=== PATIENT | female | born 1940 | race Caucasian/White ===

== ENCOUNTER 2021-01-29 08:50 | Day surgery (SDC) | payer MEDICARE, OTHER, SELFPAY ==
[2021-01-29 09:14] VITALS: BP 182/86; PULSE 72; RESP 16; TEMP 36.5; O2SAT 98
[2021-01-29] MEDS: Tropicam./Phenyleph. (1/2.5%) 5 ML BTL OS ×3 (09:20→09:32)
--- NOTE | 2021-01-29 09:31 | W.ANESPRE ---
General Info Date of Service Date Performed: 01/29/21 Height: 5 ft 2 in Weight: 58.967 kg Body Mass Index (BMI): 23.8 Surgical Procedure: Operation Date: 01/29/21 11:40 Proposed Procedures Side Surgeon p Cataract Extraction with IOL Implant Left Armani Vides MD Meds Allergies and Home Medications Allergies Allergy/AdvReac Type Severity Reaction Status Date / Time latex Allergy Intermediate Other (See Unverified 01/28/21 14:39 Comment) Macrolide Antibiotics Allergy Intermediate Other (See Unverified 01/28/21 14:39 Comment) lisinopril AdvReac Intermediate Other (See Unverified 01/28/21 14:39 Comment) Home Medication Medication Instructions Recorded albuterol sulfate [Ventolin HFA] 2 puff INHALATION Q4H PRN 01/27/21 amlodipine 5 mg PO DAILY 01/27/21 ascorbic acid (vitamin C) [Vitamin 500 mg PO DAILY 01/27/21 C] aspirin [Aspir-81] 81 mg PO DAILY 01/27/21 cholecalciferol (vitamin D3) 25 mcg PO DAILY 01/27/21 [Vitamin D3] ferrous sulfate [iron] 325 mg PO DAILY 01/27/21 fluticasone propionate [Flonase] 1 spray INTRANASAL DAILY PRN 01/27/21 lidocaine 1 applic TOPICAL DAILY PRN 01/27/21 [id number]-zjiztni-min 1 tab PO BID 01/27/21 [ICaps] vitamin A 1 cap PO DAILY 01/27/21 vitamin B complex 1 cap PO DAILY 01/27/21 vitamin E 400 cap PO DAILY 01/27/21 Current Visit Medications: Current Medications Generic Name Dose Route Start Last Admin Trade Name Freq PRN Reason Stop Dose Admin Acetaminophen 1,000 mg 01/29/21 06:00 Acetaminophen 500 Mg Tab PO Q4H PRN PRN Miscellaneous Medication 0 ml 01/29/21 06:00 Prednisolone 1%, Moxifloxacin 0.5%, Nepafenac 0.1% 5ml Btl OS DIRECTED [facility] Miscellaneous Medication 0 ml 01/29/21 06:00 01/29/21 09:26 Tropicam./Phenyleph. (1/2.5%) 5 Ml Btl OS 1 drp DIRECTED MANE Administration Tetracaine HCl 0 ml 01/29/21 06:00 Tetracaine 0.5% 4 Ml Btl OS DIRECTED [facility] Active Problems Active Problems: Problem Status Onset Code Nuclear sclerotic cataract of left eye H25.12 Cortical cataract of left eye H26.9 Medical History Medical History Alopecia Hyperlipidemia Hypertension Osteopenia Otitis externa RAD (reactive airway disease) Surgical History Surgical History History of hysteroscopy Hx of dilation and curettage Hx of tonsillectomy Tobacco Smoking/Tobacco Use Status: Never Alcohol Alcohol Intake: current Alcohol intake frequency: a few times a month Alcohol type: wine Substance Use Substance use: Never Substance use type: does not use Vital Signs and Lab Results Vital Signs Most Recent Vital Signs in EMR: Most Recent Vital Signs Temp Pulse Resp BP Pulse Ox 36.5 C 72 16 182/86 H 98 01/29/21 09:14 01/29/21 09:14 01/29/21 09:14 01/29/21 09:14 01/29/21 09:14 Lab Results Blood Type / Crossmatch: No Data to Display Complete Blood Count: No Data to Display Complete Metabolic Panel: No Data to Display Liver Function Panel: No Data to Display Coagulation Panel: No Data to Display Cardiac Panel: No Data to Display Arterial Blood Gas: No Data to Display Venous Blood Gas: No Data to Display Pancreas Panel: No Data to Display Thyroid Panel: No Data to Display Infectious Disease: No Data to Display Blood Cultures: No Data to Display Toxicology Panel: No Data to Display Anesthesia Assessment and Plan Anesthesia History Personal History: No History of Anesthesia Complications Family History: No Family History of Anesthesia Complications Exercise Tolerance Exercise Tolerance: Metabolic Equivalents>4 Pertinent Negatives Pertinent Negatives: No Symptoms of GERD Cardiac & Pulmonary Exam Cardiac Exam: Normal S1/S2 Heart Sounds Pulmonary Exam: Clear Bilateral Breath Sounds Airway Exam Known Difficult Airway: No Mallampati Class: 3 Mouth Opening: Normal (> 3cm) Thyromental Distance: Less than 3 cm Neck Range of Motion: Full ROM Neck Circumference: Normal Teeth Condition: Normal Dentition ASA Classification ASA Score: ASA 2 Emergency Case?: No NPO Status NPO Status: NPO Clears >2 hours, Solids >8 hours Anesthesia Plan Resuscitation Status: Full Code Anesthesia Technique: MAC Anesthesia Airway Planned: Natural Airway Monitors Used: Standard Monitors
[2021-01-29 09:33] VITALS: BMI 23.8
[2021-01-29] MEDS: Tetracaine 0.5% 4 ML BTL OS (10:35)
[2021-01-29] MEDS: Lidocaine 2% Jelly 6 ML SYR (10:39)
[2021-01-29] MEDS: Duovisc Viscoelastic System EACH 1 EACH (10:39)
[2021-01-29] MEDS: Lidocaine 1% Pres-Free 5 ML VIAL (10:39)
[2021-01-29] MEDS: Balanced Salt Soln.-PLUS 500 ML BAG (10:39)
[2021-01-29] MEDS: Povidone-Iodine Ophth 30 ML BTL (10:43)
[2021-01-29] MEDS: Trypan Blue 0.06% 0.5 ML SYR (10:48)
--- NOTE | 2021-01-29 11:02 | W.PM.DSUDISC ---
Discharge Plan Disposition Patient Disposition: HOME Condition: Good Discharge Details Attending Provider: Armani Vides Primary Care Provider: Pam Chacon Home Meds and New Rx's Prescriptions: No Action vitamin A 25,000 unit Capsule 1 cap PO DAILY RF: 0 lidocaine 4 % Cream 1 applic topical DAILY PRNRF: 0 amlodipine 5 mg Tablet 5 mg PO DAILY RF: 0 aspirin [Aspir-81] 81 mg Tablet,Delayed Release (Dr/Ec) 81 mg PO DAILY RF: 0 ascorbic acid (vitamin C) [Vitamin C] 500 mg Tablet 500 mg PO DAILY RF: 0 ferrous sulfate [iron] 325 mg (65 mg iron) Tablet 325 mg PO DAILY RF: 0 albuterol sulfate [Ventolin HFA] 90 mcg/actuation Hfa Aerosol Inhaler 2 puff INHALATION Q4H PRNRF: 0 fluticasone propionate [Flonase] 50 mcg/actuation [place],Suspension 1 spray INTRANASAL DAILY PRNRF: 0 vitamin E 400 unit Capsule 400 cap PO DAILY RF: 0 vitamin B complex Capsule 1 cap PO DAILY RF: 0 ICaps 3,019-1-979-75 ujmm-kh-ta-unit Tablet Extended Release 1 tab PO BID RF: 0 cholecalciferol (vitamin D3) [Vitamin D3] 25 mcg (1,000 unit) Tablet 25 mcg PO DAILY RF: 0 Discharge Instructions Stand Alone Forms: Post-op Topical Cataract, Erna Gold (DSU) Discharge Orders Discharge Orders: Discharge Order (Routine); Ordered 01/29/21 Ordered By: Armani Vides DS: Diagnosis Discharge Diagnosis (1) Nuclear sclerotic cataract of left eye: Status: Resolved (2) Cortical cataract of left eye: Status: Resolved
--- NOTE | 2021-01-29 11:03 | W.PM.OP ---
Date of service: 01/29/21 Time of Service: 11:03 Operative Note Operative Note DATE OF PROCEDURE: 01/29/21 PRE-OP DIAGNOSIS: Nuclear/cortical cataract, left eye Poor red reflex, left eye secondary to cataract POST-OP DIAGNOSIS: same PROCEDURE: Cataract extraction using phacoemulsification with intraocular lens implant, left eye, using capsular staining with Vision Blue SURGEON: Armani Vides ANESTHESIA TYPE: Local By Surgeon and MAC Refer to Anesthesia Record COMPLICATIONS: None Patient was transported to: same day Patient's condition: stable Implants: [employer] / [employer] Tecnis [id number] Indications: Progressive decreased vision due to cataract, left eye, with poor red reflex Procedure Description: CATARACT SURGERY OPERATIVE REPORT PREOPERATIVE DIAGNOSIS: 1. Nuclear/cortical cataract, left eye 2. Poor red reflex secondary to #1 POSTOPERATIVE DIAGNOSIS: Same OPERATION: 1. Cataract extraction using phacoemulsification with posterior chamber intraocular lens implant, left eye. 2. Capsular staining with Vision Blue IOL: IOL Manager Trade/Model: [employer] Costa / JOSE Tecnis [id number] IOL Power: + 22.5 diopters IOL Serial Number: [id number] Optic Diameter: 6.0 mm Haptic/Overall Diameter: 13.0 mm PHACO INFO: Bj [employer] Vision System with OZil and Active Fluidics Cumulative Dispersed Energy (CDE): 9.12 seconds SURGEON: Armani Vides MD, HETAL ANESTHESIA: Monitored A [facility] (MAC), with local sub-tenon's anesthetic infiltration COMPLICATIONS: None SPECIMENS: None INDICATIONS FOR PROCEDURE: The patient is an 80-year-old lady with history of diminished visual acuity in her left eye. She is noted to have a dense nuclear and cortical cataract of the left eye. The option of cataract surgery was offered to the patient and she wished to proceed. PROCEDURE: The correct surgical eye was identified and marked as the left eye and the pupil was dilated in the preoperative area using mydriatics and cycloplegics. The dilated pupil size was 6.5 mm. She elected to proceed without oral sedation. The patient was brought to the operating room where cardiopulmonary monitoring was instituted and surgical time-out was performed, confirming the correct operative eye and IOL power. Topical anesthesia was administered and ophthalmic povidone-iodine 5% was instilled into the conjunctival fornices. Lidocaine gel was applied to the cornea and the yanelis-ocular area was prepped with Betadine 10% solution and draped in the usual sterile fashion for intraocular surgery, including an aperture drape. A Tegaderm transparent film dressing was cut in half and used to cover the lashes and lid margins. Care was taken to sequester the lashes and lid margins under the Tegaderm dressing. A lid speculum was placed between the lids of the operative eye and the Karyn-Viet operating microscope was maneuvered into position. Angélica scissors were then used to make a conjunctival buttonhole approximately 6mm posterior to the limbus in the inferonasal quadrant. Blunt dissection was carried out to expose bare sclera, and a blunt-tipped sub-tenon?s anesthesia cannula was introduced and passed posteriorly along the globe where non-preserved plain lidocaine was injected into posterior sub-Tenon?s space. A sideport knife was used to make a paracentesis port superiorly/superiortemporally. Intraocular phenylephrine/lidocaine was injected int the anterior chamber.. Air was then injected into the anterior chamber, followed by Vision Blue, which was painted over the anterior capsule and then irrigated out using BSS. The anterior chamber was filled with viscoelastic. A 2.4mm keratome knife was used to create a half-thickness groove at the limbus and then to construct a three-plane near-clear corneal tunnel extending 2.0mm into clear cornea at the 3:00 position. A flap was raised on the anterior capsule and capsulorhexis forceps were used to complete a continuous curvilinear capsulorhexis of 5.0 mm. Balanced salt solution was then used to perform cortical cleaving hydrodissection and nuclear hydrodelineation until the lens could be freely rotated within the capsular bag. The lens nucleus was then disassembled and removed within the capsular bag and iris plane using phacoemulsification. Residual cortical material was removed using the 45-degree angled silicone I/A tip with 0.3mm port. The posterior capsule was carefully polished to remove as much residual lens epithelial cells as safely possible. The capsular bag was then inflated and the anterior chamber deepened with viscoelastic. The lens implant described above was inserted into the capsular bag using the JOSE [place] Injector. A Kuglen hook was used to dial the IOL into position. Residual viscoelastic was then removed first from posterior to the IOL, then from the anterior chamber using the I/A handpiece. The lens implant was noted to center nicely within the capsular bag. The incisions were stromally hydrated, and the anterior chamber was reformed using BSS. Then 0.5cc of moxifloxacin 1.0mg/ml were injected into the capsular bag and anterior chamber. The incisions were checked with a Weck spear and found to be secure. Several drops of ophthalmic povidone-iodine 5% were then applied to the eye followed by two drops of Imprimis combination prednisolone/moxifloxacin/nepafenac solution. The drapes were removed and a clear plastic protective eye shield was placed over the eye. The patient was then returned to Same Day Surgery in stable condition.
[2021-01-29 11:05] VITALS: BP 152/86; PULSE 62; RESP 18; TEMP 36.4; O2SAT 97
--- NOTE | 2021-01-29 11:38 | W.ANESPOSTOP ---
Postoperative Evaluation Date, Time and Location Date Performed: 01/29/21 Time Performed: 11:10 Patient Location: Day Surgery Unit Vital Signs Most Recent Imported Vital Signs: Most Recent Vital Signs Temp Pulse Resp BP Pulse Ox 36.4 C L 62 18 152/86 H 97 01/29/21 11:05 01/29/21 11:05 01/29/21 11:05 01/29/21 11:05 01/29/21 11:05 Pain Score Most Recent Pain Score: Most Recent Pain Score Pain Level 0 01/29/21 11:05 Assessment Mental Status: Awake (Alert & Oriented to Patient Baseline) Airway and Respiratory Function: Patent airway with normal (patient baseline) respiratory exam Cardiovascular Function: Hemodynamically Stable Hydration Status: Adequately Hydrated Nausea & Vomiting: No Nausea or Vomiting Pain: Pt. Denies Any Pain Peripheral Nerve Block: Patient did not receive a nerve block
== END 2021-01-29 11:55 | disposition home or self-care (01) ==
PROVIDERS: PCP Nurse Practitioner Family; Visit Provider Ophthalmology
PROC: (CPT 66984; principal; 2021-01-29 11:30)
DX: H25.12 Age-related nuclear cataract, left eye (principal)
CPT/HCPCS: 66984; V2632

== ENCOUNTER 2021-10-18 08:59 | Day surgery (SDC) | payer MEDICARE, OTHER, SELFPAY ==
--- NOTE | 2021-10-18 06:37 | ANES.PREOP_ITS ---
General Info Date of Service Date Performed: 10/18/21 Height: 5 ft 2 in Weight: 62 kg Body Mass Index (BMI): 25.0 Surgical Procedure: Operation Date: 10/18/21 10:40 Proposed Procedure Side Surgeon p Cataract Extraction with IOL Implant Right Armani Vides MD Meds Allergies and Home Medications Allergies Allergy/AdvReac Type Severity Reaction Status Date / Time Macrolide Antibiotics Allergy Intermediate Per Unverified 10/18/21 09:23 pulmonology latex AdvReac Intermediate itchy, Unverified 10/18/21 09:23 watery eyes lisinopril AdvReac Intermediate cough Unverified 10/18/21 09:23 Home Medication Medication Instructions Recorded albuterol sulfate 90 mcg/actuation 2 puff INHALATION Q4H PRN 01/27/21 aerosol inhaler (Ventolin HFA) amlodipine 5 mg tablet 5 mg PO DAILY 01/27/21 ascorbic acid (vitamin C) 500 mg 500 mg PO DAILY 01/27/21 tablet (Vitamin C) aspirin 81 mg tablet,delayed 81 mg PO DAILY 01/27/21 release cholecalciferol (vitamin D3) 25 25 mcg PO DAILY 01/27/21 mcg (1,000 unit) tablet (Vitamin D3) ferrous sulfate 325 mg (65 mg 325 mg PO DAILY 01/27/21 iron) tablet (iron) fluticasone propionate 50 1 spray INTRANASAL DAILY PRN 01/27/21 mcg/actuation nasal spray,suspension lidocaine 4 % topical cream 1 applic TOPICAL DAILY PRN 01/27/21 [id number]-dtyyrhd-min 1 tab PO BID 01/27/21 3,300 unit-5 mg-200mg-75 unit tablet ER (ICaps) vitamin B complex 1 cap PO DAILY 01/27/21 vitamin E 400 unit capsule 400 cap PO DAILY 01/27/21 acetaminophen 325 mg tablet 325 mg PO PRN PRN 10/14/21 benzonatate 100 mg capsule 100 - 200 mg PO Q4H PRN 10/14/21 calcium 500 mg tablet 500 mg PO TIDWMEAL 10/14/21 fluticasone propionate 220 2 puff INHALATION BID 10/14/21 mcg/actuation HFA aerosol inhaler vitamin A 2,400 mcg capsule 2,400 mcg PO DAILY 10/14/21 Current Visit Medications: Current Medications Generic Name Dose Route Start Last Admin Trade Name Freq PRN Reason Stop Dose Admin Acetaminophen 1,000 mg 10/18/21 06:00 Acetaminophen 500 Mg Tab PO Q4H PRN PRN Miscellaneous Medication 0 ml 10/18/21 06:00 Prednisolone 1%, Moxifloxacin 0.5%, Nepafenac 0.1% 5ml Btl OD [facility] Miscellaneous Medication 0 ml 10/18/21 06:00 Tropicam./Phenyleph. (1/2.5%) 5 Ml Btl OD [facility] Tetracaine HCl 0 ml 10/18/21 06:00 Tetracaine 0.5% 4 Ml Btl OD [facility] PFSH Active Problems Active Problems: Problem Status Onset Code Cortical cataract of right eye H26.9 Nuclear sclerotic cataract of right eye H25.11 Nuclear sclerotic cataract of left eye H25.12 Cortical cataract of left eye H26.9 Medical History Medical History (Updated 10/15/21 @ 18:40 by Armani Vides MD) Alopecia Hyperlipidemia Hypertension Osteopenia Otitis externa RAD (reactive airway disease) Surgical History Surgical History (Updated 10/14/21 @ 11:19 by Kirsten Hardy RN) History of cataract surgery History of hysteroscopy Hx of dilation and curettage Hx of tonsillectomy Tobacco Smoking/Tobacco Use Status: Never Alcohol Alcohol Intake: current Alcohol intake frequency: a few times a month Alcohol type: wine Substance Use Substance use: Never Substance use type: does not use Vital Signs and Lab Results Vital Signs Most Recent Vital Signs in EMR: Temp Pulse Resp BP Pulse Ox 36.6 C 61 16 160/69 H 98 10/18/21 09:32 10/18/21 09:32 10/18/21 09:32 10/18/21 09:32 10/18/21 09:32 Lab Results Blood Type / Crossmatch: No Data to Display Complete Blood Count: No Data to Display Complete Metabolic Panel: No Data to Display Liver Function Panel: No Data to Display Coagulation Panel: No Data to Display Cardiac Panel: No Data to Display Arterial Blood Gas: No Data to Display Venous Blood Gas: No Data to Display Pancreas Panel: No Data to Display Thyroid Panel: No Data to Display Infectious Disease: No Data to Display Blood Cultures: No Data to Display Toxicology Panel: No Data to Display Anesthesia Assessment and Plan Anesthesia History Personal History: No History of Anesthesia Complications and Delayed Emergence Family History: No Family History of Anesthesia Complications Exercise Tolerance Exercise Tolerance: Metabolic Equivalents>4 Cardiac & Pulmonary Exam Cardiac Exam: Normal S1/S2 Heart Sounds Pulmonary Exam: Clear Bilateral Breath Sounds Implantable Cardiac Device Does patient have a Pacemaker or an ICD?: No Airway Exam Known Difficult Airway: No Mallampati Class: 3 Mouth Opening: Normal (> 3cm) Thyromental Distance: Less than 3 cm Neck Range of Motion: Full ROM Neck Circumference: Normal Teeth Condition: Normal Dentition ASA Classification ASA Score: ASA 3 Emergency Case?: No NPO Status NPO Status: NPO Clears >2 hours, Solids >8 hours Anesthesia Plan Resuscitation Status: Full Code Anesthesia Technique: MAC Anesthesia Airway Planned: Natural Airway Monitors Used: Standard Monitors Preoperative Comments:: 81 yo female for cataract extraction. Sig PMHx: HTN, RAD, never smoker, occ EtOH. previous cat without MKO.
[2021-10-18] MEDS: Tropicam./Phenyleph. (1/2.5%) 5 ML BTL OD ×3 (09:31→09:40)
[2021-10-18 09:32] VITALS: BP 160/69; PULSE 61; RESP 16; TEMP 36.6; O2SAT 98
[2021-10-18 09:46] VITALS: BMI 25.0
[2021-10-18] MEDS: Tetracaine 0.5% 4 ML BTL OD (10:19)
[2021-10-18] MEDS: Balanced Salt Soln.-PLUS 500 ML BAG (10:19)
[2021-10-18] MEDS: Duovisc Viscoelastic System EACH 1 EACH (10:20)
[2021-10-18] MEDS: Lidocaine 2% Jelly 6 ML SYR (10:21)
[2021-10-18] MEDS: Povidone-Iodine Ophth 30 ML BTL (10:22)
--- NOTE | 2021-10-18 10:33 | W.ANESPRE ---
General Info Date of Service Date Performed: 10/18/21 Height: 5 ft 2 in Weight: 62 kg Body Mass Index (BMI): 25.0 Surgical Procedure: Operation Date: 10/18/21 10:40 Proposed Procedure Side Surgeon p Cataract Extraction with IOL Implant Right Armani Vides MD Actual Procedure Side Surgeon p Cataract Extraction with IOL Implant Right Armani Vides MD Pre-Op Diagnosis Post-Op Diagnosis CATARACT RIGHT EYE CATARACT RIGHT EYE Meds Allergies and Home Medications Allergies Allergy/AdvReac Type Severity Reaction Status Date / Time Macrolide Antibiotics Allergy Intermediate Per Unverified 10/18/21 09:23 pulmonology latex AdvReac Intermediate itchy, Unverified 10/18/21 09:23 watery eyes lisinopril AdvReac Intermediate cough Unverified 10/18/21 09:23 Home Medication Medication Instructions Recorded albuterol sulfate 90 mcg/actuation 2 puff INHALATION Q4H PRN 01/27/21 aerosol inhaler (Ventolin HFA) amlodipine 5 mg tablet 5 mg PO DAILY 01/27/21 ascorbic acid (vitamin C) 500 mg 500 mg PO DAILY 01/27/21 tablet (Vitamin C) aspirin 81 mg tablet,delayed 81 mg PO DAILY 01/27/21 release cholecalciferol (vitamin D3) 25 25 mcg PO DAILY 01/27/21 mcg (1,000 unit) tablet (Vitamin D3) ferrous sulfate 325 mg (65 mg 325 mg PO DAILY 01/27/21 iron) tablet (iron) fluticasone propionate 50 1 spray INTRANASAL DAILY PRN 01/27/21 mcg/actuation nasal spray,suspension lidocaine 4 % topical cream 1 applic TOPICAL DAILY PRN 01/27/21 [id number]-M-[id number]-bckvjve-min 1 tab PO BID 01/27/21 3,300 unit-5 mg-200mg-75 unit tablet ER (ICaps) vitamin B complex 1 cap PO DAILY 01/27/21 vitamin E 400 unit capsule 400 cap PO DAILY 01/27/21 acetaminophen 325 mg tablet 325 mg PO PRN PRN 10/14/21 benzonatate 100 mg capsule 100 - 200 mg PO Q4H PRN 10/14/21 calcium 500 mg tablet 500 mg PO TIDWMEAL 10/14/21 fluticasone propionate 220 2 puff INHALATION BID 10/14/21 mcg/actuation HFA aerosol inhaler vitamin A 2,400 mcg capsule 2,400 mcg PO DAILY 10/14/21 Current Visit Medications: Current Medications Generic Name Dose Route Start Last Admin Trade Name Freq PRN Reason Stop Dose Admin Acetaminophen 1,000 mg 10/18/21 06:00 Acetaminophen 500 Mg Tab PO Q4H PRN PRN Miscellaneous Medication 0 ml 10/18/21 06:00 10/18/21 10:19 Prednisolone 1%, Moxifloxacin 0.5%, Nepafenac 0.1% 5ml Btl OD 2 drp DIRECTED MANE Administration Miscellaneous Medication 0 ml 10/18/21 06:00 10/18/21 09:40 Tropicam./Phenyleph. (1/2.5%) 5 Ml Btl OD 1 drp DIRECTED MANE Administration Tetracaine HCl 0 ml 10/18/21 06:00 10/18/21 10:19 Tetracaine 0.5% 4 Ml Btl OD 4 drp DIRECTED MANE Administration PFSH Active Problems Active Problems: Problem Status Onset Code Cortical cataract of right eye H26.9 Nuclear sclerotic cataract of right eye H25.11 Nuclear sclerotic cataract of left eye H25.12 Cortical cataract of left eye H26.9 Medical History Medical History Alopecia Hyperlipidemia Hypertension Osteopenia Otitis externa RAD (reactive airway disease) Surgical History Surgical History History of cataract surgery History of hysteroscopy Hx of dilation and curettage Hx of tonsillectomy Tobacco Smoking/Tobacco Use Status: Never Alcohol Alcohol Intake: current Alcohol intake frequency: a few times a month Alcohol type: wine Substance Use Substance use: Never Substance use type: does not use Vital Signs and Lab Results Vital Signs Most Recent Vital Signs in EMR: Most Recent Vital Signs Temp Pulse Resp BP Pulse Ox 36.6 C 61 16 160/69 H 98 10/18/21 09:32 10/18/21 09:32 10/18/21 09:32 10/18/21 09:32 10/18/21 09:32 Lab Results Blood Type / Crossmatch: No Data to Display Complete Blood Count: No Data to Display Complete Metabolic Panel: No Data to Display Liver Function Panel: No Data to Display Coagulation Panel: No Data to Display Cardiac Panel: No Data to Display Arterial Blood Gas: No Data to Display Venous Blood Gas: No Data to Display Pancreas Panel: No Data to Display Thyroid Panel: No Data to Display Infectious Disease: No Data to Display Blood Cultures: No Data to Display Toxicology Panel: No Data to Display Anesthesia Assessment and Plan Anesthesia History Personal History: No History of Anesthesia Complications and Delayed Emergence Family History: No Family History of Anesthesia Complications Exercise Tolerance Exercise Tolerance: Metabolic Equivalents>4 Implantable Cardiac Device Does patient have a Pacemaker or an ICD?: No Airway Exam Known Difficult Airway: No Mallampati Class: 3 Mouth Opening: Normal (> 3cm) Thyromental Distance: Less than 3 cm Neck Range of Motion: Full ROM Neck Circumference: Normal Teeth Condition: Normal Dentition
[2021-10-18 10:40] VITALS: BP 136/66; PULSE 57; RESP 16; TEMP 36.5; O2SAT 96
--- NOTE | 2021-10-18 10:43 | W.ANESPOSTOP ---
Postoperative Evaluation Date, Time and Location Date Performed: 10/18/21 Time Performed: 10:43 Patient Location: Day Surgery Unit Vital Signs Most Recent Imported Vital Signs: Most Recent Vital Signs Temp Pulse Resp BP Pulse Ox 36.5 C 57 L 16 136/66 96 10/18/21 10:40 10/18/21 10:40 10/18/21 10:40 10/18/21 10:40 10/18/21 10:40 Pain Score Most Recent Pain Score: Most Recent Pain Score Pain Level 0 10/18/21 10:40 Assessment Mental Status: Awake (Alert & Oriented to Patient Baseline) Airway and Respiratory Function: Patent airway with normal (patient baseline) respiratory exam Cardiovascular Function: Hemodynamically Stable Hydration Status: Adequately Hydrated Nausea & Vomiting: No Nausea or Vomiting Pain: Pt. Denies Any Pain Peripheral Nerve Block: Patient did not receive a nerve block
--- NOTE | 2021-10-18 10:43 | W.PM.DSUDISC ---
Discharge Plan Disposition Patient Disposition: HOME Condition: Good Discharge Details Attending Provider: Armani Vides Primary Care Provider: Pam Chacon Home Meds and New Rx's Prescriptions: No Action vitamin A 2,400 mcg Capsule 2,400 mcg PO DAILY 0RF acetaminophen 325 mg Tablet 325 mg PO PRN PRN0RF calcium 500 mg Tablet 500 mg PO TIDWMEAL 0RF benzonatate 100 mg Capsule 100 - 200 mg PO Q4H PRN0RF Flovent 220 mcg/actuation Hfa Aerosol Inhaler 2 puff INHALATION BID 0RF lidocaine 4 % Cream 1 applic topical DAILY PRN0RF amlodipine 5 mg Tablet 5 mg PO DAILY 0RF aspirin [Aspir-81] 81 mg Tablet,Delayed Release (Dr/Ec) 81 mg PO DAILY 0RF ascorbic acid (vitamin C) [Vitamin C] 500 mg Tablet 500 mg PO DAILY 0RF ferrous sulfate [iron] 325 mg (65 mg iron) Tablet 325 mg PO DAILY 0RF albuterol sulfate [Ventolin HFA] 90 mcg/actuation Hfa Aerosol Inhaler 2 puff INHALATION Q4H PRN0RF fluticasone propionate [Flonase] 50 mcg/actuation [place],Suspension 1 spray INTRANASAL DAILY PRN0RF vitamin E 400 unit Capsule 400 cap PO DAILY 0RF vitamin B complex Capsule 1 cap PO DAILY 0RF ICaps 3,075-7-152-75 eetw-ay-dw-unit Tablet Extended Release 1 tab PO BID 0RF cholecalciferol (vitamin D3) [Vitamin D3] 25 mcg (1,000 unit) Tablet 25 mcg PO DAILY 0RF Discharge Instructions Stand Alone Forms: Post-op Topical Cataract, Erna Gold (DSU) Discharge Orders Discharge Orders: Discharge Order (Routine); Ordered 10/18/21 Ordered By: Armani Vides DS: Diagnosis Discharge Diagnosis (1) Cortical cataract of right eye: Status: Resolved (2) Nuclear sclerotic cataract of right eye: Status: Resolved
--- NOTE | 2021-10-18 10:44 | W.PM.OP ---
Date of service: 10/18/21 Time of Service: 10:44 Operative Note Operative Note DATE OF PROCEDURE: 10/18/21 PRE-OP DIAGNOSIS: Nuclear/cortical cataract, right eye POST-OP DIAGNOSIS: same PROCEDURE: Cataract extraction using phacoemulsification with intraocular lens implant, right eye SURGEON: Armani Vides ANESTHESIA TYPE: Local By Surgeon and MAC Refer to Anesthesia Record ESTIMATED BLOOD LOSS: 0 PATHOLOGY: none sent COMPLICATIONS: None Patient was transported to: same day Patient's condition: stable Implants: [employer]/JOSE [employer]nis [id number] Indications: Progressive visual loss due to cataract, right eye Procedure Description: CATARACT SURGERY OPERATIVE REPORT PREOPERATIVE DIAGNOSIS: 1. Nuclear/cortical cataract, right eye POSTOPERATIVE DIAGNOSIS: Same OPERATION: 1. Cataract extraction using phacoemulsification with posterior chamber intraocular lens implant, right eye. IOL: IOL Lead Manufacturing Engineer/Model: [employer] / JOSE [employer]ecnis [id number] IOL Power: + 23.5 diopters IOL Serial Number: [id number] Optic Diameter: 6.0mm Haptic/Overall Diameter: 13.0mm PHACO INFO: Bj wiseriurion Vision System with OZil and Active Fluidics Cumulative Dispersed Energy (CDE): 6.44 seconds SURGEON: Armani Vides MD, HETAL ANESTHESIA: Monitored Anesthesia Care (MAC), with local sub-tenon's anesthetic infiltration COMPLICATIONS: None SPECIMENS: None INDICATIONS FOR PROCEDURE: The patient is an 81-year-old lady with history of diminished visual acuity in her right eye secondary to the development of nuclear/cortical cataract. She has already undergone cataract surgery in the left eye and is doing well postoperatively. She now presents for cataract surgery in the right eye. PROCEDURE: The correct surgical eye was identified and marked as the right eye and the pupil was dilated in the preoperative area using mydriatics and cycloplegics. The dilated pupil size was 6.5 mm. She elected to proceed without oral sedation. The patient was brought to the operating room where cardiopulmonary monitoring was instituted and surgical time-out was performed, confirming the correct operative eye and IOL power. Topical anesthesia was administered and ophthalmic povidone-iodine 5% was instilled into the conjunctival fornices. Lidocaine gel was applied to the cornea and the yanelis-ocular area was prepped with Betadine 10% solution and draped in the usual sterile fashion for intraocular surgery, including an aperture drape. A Tegaderm transparent film dressing was cut in half and used to cover the lashes and lid margins. Care was taken to sequester the lashes and lid margins under the Tegaderm dressing. A lid speculum was placed between the lids of the operative eye and the Bj [employer] operating microscope was maneuvered into position. Angélica scissors were then used to make a conjunctival buttonhole approximately 6mm posterior to the limbus in the inferonasal quadrant. Blunt dissection was carried out to expose bare sclera, and a blunt-tipped sub-tenon?s anesthesia cannula was introduced and passed posteriorly along the globe where non-preserved plain lidocaine was injected into posterior sub-Tenon?s space. A sideport knife was used to make a paracentesis port inferotemporally. Intraocular phenylephrine/lidocaine was injected into the anterior chamber. The anterior chamber was filled with viscoelastic. A 2.4mm keratome knife was used to create a half-thickness groove at the limbus and then to construct a three-plane near-clear corneal tunnel extending 2.0mm into clear cornea superiortemporally. A flap was raised on the anterior capsule and capsulorhexis forceps were used to complete a continuous curvilinear capsulorhexis of 5.0 mm. Balanced salt solution was then used to perform cortical cleaving hydrodissection and nuclear hydrodelineation until the lens could be freely rotated within the capsular bag. The lens nucleus was then disassembled and removed within the capsular bag and iris plane using phacoemulsification. Residual cortical material was removed using the I/A handpiece. The posterior capsule was carefully polished to remove as much residual lens epithelial cells as safely possible. The capsular bag was then inflated and the anterior chamber deepened with viscoelastic. The lens implant described above was inserted into the capsular bag using the JOSE [place] Injector. A Kuglen hook was used to dial the IOL into position. Residual viscoelastic was then removed first from posterior to the IOL, then from the anterior chamber using the I/A handpiece. The lens implant was noted to center nicely within the capsular bag. The incisions were stromally hydrated, and the anterior chamber was reformed using BSS. Then 0.5cc of moxifloxacin 1.0mg/ml were injected into the capsular bag and anterior chamber. The incisions were checked with a Weck spear and found to be secure. Several drops of ophthalmic povidone-iodine 5% were then applied to the eye followed by two drops of Imprimis combination prednisolone/moxifloxacin/nepafenac solution. The drapes were removed and a clear plastic protective eye shield was placed over the eye. The patient was then returned to [facility] in stable condition.
== END 2021-10-18 11:44 | disposition home or self-care (01) ==
PROVIDERS: PCP Nurse Practitioner Family; Visit Provider Ophthalmology
PROC: (CPT 66984; principal; 2021-10-18 10:30)
DX: H25.11 Age-related nuclear cataract, right eye (principal); I10 Essential (primary) hypertension; E78.5 Hyperlipidemia, unspecified
CPT/HCPCS: 66984; V2632